=== PATIENT | male | born 1965 | race Caucasian/White ===

== ENCOUNTER 2017-10-16 09:42 | Emergency (ER) | payer MEDICAID ==
[~2017-10-16] VITALS: Ht 170.2 cm; Wt 110.0 kg
[2017-10-16] MEDS ORDERED: LIDOcaine 1% 30ml preserv. free vial IJ ONE (10:50)
[2017-10-16] MEDS ORDERED: TETanus/Pertussis (Acell)/Diphther VAC/PF (Tdap-Adult) 0.5ml syringe IM ONE (10:50)
[2017-10-16] MEDS ORDERED: CEPH500C5 PO (12:38)
[2017-10-16 12:57] VITALS: BP 135/98
== END 2017-10-16 12:58 | disposition home or self-care (01) ==
LOC: ER 09:42
DX: L02.511 Cutaneous abscess of right hand (principal); L03.011 Cellulitis of right finger; M54.2 Cervicalgia
CPT/HCPCS: 26010; 72040; 73140; 90471; 90715; 99284; A6449; J3490; 10060

== ENCOUNTER 2017-10-18 17:12 | Emergency (ER) | payer MEDICAID ==
[~2017-10-18] VITALS: Ht 170.2 cm; Wt 97.3 kg
[~2017-10-18 17:12] MED LIST: CEPH500C5 PO
[2017-10-18 17:17] VITALS: BP 146/99
[2017-10-18] MEDS ORDERED: ipratropium 0.5 MG/2.5ML nebule IH ONE (18:35)
[2017-10-18] MEDS ORDERED: albuterol 2.5 MG/3 ML nebule CONTNEB PRN (18:35)
[2017-10-18] MEDS ORDERED: predniSONE 20 mg tablet PO ONE (18:35)
[2017-10-18] MEDS ORDERED: albuterol 2.5 MG/3 ML nebule NEB ONE (18:50)
[2017-10-18] MEDS ORDERED: PRED20TA PO (19:48)
[2017-10-18] MEDS ORDERED: ALBU8HFA PO (19:48)
[2017-10-18] MEDS ORDERED: DOXY100C2 PO (19:50)
[2017-10-18] MEDS ORDERED: ATRIN INH (19:50)
== END 2017-10-18 20:10 | disposition home or self-care (01) ==
LOC: ER 17:21
DX: J44.1 Chronic obstructive pulmonary disease with (acute) exacerbation (principal); J18.8 Other pneumonia, unspecified organism; F15.10 Other stimulant abuse, uncomplicated; F17.210 Nicotine dependence, cigarettes, uncomplicated; Z86.14 Personal history of Methicillin resistant Staphylococcus aureus infection; Z79.899 Other long term (current) drug therapy
CPT/HCPCS: 71046; 94640; 94760; 99284; J7512

== ENCOUNTER 2018-03-19 15:20 | Inpatient (IN) | payer MEDICAID ==
[~2018-03-19] VITALS: Ht 167.6 cm; Wt 96.4 kg
[2018-03-19 08:00] VITALS: BP 114/76
[~2018-03-19 15:20] MED LIST changes: +ALBU8HFA PO; +ATRIN INH; +PRED20TA PO
[2018-03-19] MEDS ORDERED: normal saline 1000ml 1,000 ML IV ONE (15:31)
[2018-03-19] MEDS ORDERED: aspirin 81mg tab.chew PO ONE (15:35)
[2018-03-19] MEDS ORDERED: nitroGLYCERIN 0.2mg/hour patch TD ONE (15:35)
[2018-03-19] MEDS ORDERED: normal saline 1000ML IV soln IVB ONE (15:35)
[2018-03-19 16:07] LABS: BASOPHILS % (AUTO) 0.4 % (0-1); EOSINOPHILS # (AUTO) 0.1 X10'3 (0-0.9); HEMATOCRIT 46.8 % (42.0-52.0); HEMOGLOBIN 16.1 g/dl (14.0-17.9); LYMPHOCYTES # (AUTO) 2.1 X10'3 (1.1-4.8); LYMPHOCYTES % (AUTO) 32.8 % (21-51); MEAN CORPUSCULAR HEMOGLOBIN 29.3 PG (27.0-31.0); MEAN CORPUSCULAR HGB CONC 34.4 % (33.0-36.5); MEAN CORPUSCULAR VOLUME 85.3 FL (78-98); MEAN PLATELET VOLUME 8.4 FL (7.4-10.4); MONOCYTES # (AUTO) 0.5 X10'3 (0-0.9); NEUTROPHILS # (AUTO) 3.6 X10'3 (1.8-7.7); NEUTROPHILS % (AUTO) 56.8 % (42-75); PLATELET COUNT 230 X10'3 (140-440); RED BLOOD COUNT 5.49 X10'6 (4.70-6.10); RED CELL DISTRIBUTION WIDTH 14.2 % (11.5-14.5); WHITE BLOOD COUNT 6.3 X10'3 (4.5-11.0)
[2018-03-19 16:17] LABS: PARTIAL THROMBOPLASTIN TIME 28 SECONDS (22-32); PROTHROMBIN TIME 10.6 SECONDS (9.0-12.0)
[2018-03-19 16:23] LABS: ALANINE AMINOTRANSFERASE 33 U/L (12-78); ALBUMIN/GLOBULIN RATIO 1.1 (1.1-1.5); ALKALINE PHOSPHATASE 75 IU/L (46-116); ANION GAP 9 (8-16); ASPARTATE AMINO TRANSFERASE 21 U/L (10-37); BILIRUBIN,TOTAL 1.1 MG/DL (0.1-1.0); BLOOD UREA NITROGEN 17 MG/DL (7-18); BUN/CREATININE RATIO 13.7 (5.4-32.0); CALCIUM 8.9 MG/DL (8.5-10.1); CHLORIDE 103 MMOL/L (99-107); CREATININE 1.24 MG/DL (0.60-1.10); GLUCOSE 112 MG/DL (70-104); POTASSIUM 3.7 MMOL/L (3.5-5.1); SODIUM 140 MMOL/L (135-145); TOTAL CARBON DIOXIDE 28.1 MMOL/L (24-32); TOTAL PROTEIN 7.6 G/DL (6.4-8.2); eGFR 61 ML/MIN
[2018-03-19 16:31] LABS: MAGNESIUM 1.9 MG/DL (1.5-2.4)
[2018-03-19 16:49] LABS: CLARITY,URINE CLEAR (Clear); COLOR,URINE YELLOW (Yellow); GLUCOSE, URINE NEGATIVE (Neg); KETONES,URINE NEGATIVE (Neg); LEUKOCYTE ESTERASE ,URINE NEGATIVE (Neg); NITRITES, URINE NEGATIVE (Neg); OCCULT BLOOD,URINE TRACE-INTACT (Neg); PROTEIN,URINE 100 mg/dl (Neg)
[2018-03-19 16:55] LABS: UA COLLECTION TYPE CLN CATCH MIDSTREAM
[2018-03-19 16:58] LABS: BACTERIA,URINE FEW /HPF (Neg); MUCUS STRANDS MANY /LPF (Neg); RBC,URINE 0-2 /HPF (0-2); WBC,URINE 0-4 /HPF (0-4)
[2018-03-19 16:59] LABS: SQUAMOUS EPITHELIAL CELL,UR FEW /LPF (FEW)
[2018-03-19 17:51] LABS: ETHANOL < 0.010 GM/DL (0.0-0.010)
[2018-03-19] MEDS ORDERED: normal saline 1000ml 1,000 ML IV SCH (18:27)
[2018-03-19] MEDS ORDERED: magnesium 1gm/100ml D5W IVPB 100 ML IV PRN (18:30)
[2018-03-19] MEDS ORDERED: magnesium Cl slow-release 64mg tablet PO PRN (18:30)
[2018-03-19] MEDS ORDERED: potassium Cl 40MEQ/NS 500ml 500 ML IV PRN ×2 (18:30)
[2018-03-19] MEDS ORDERED: magnesium 4gm in 100ml NS 100 ML IV PRN (18:30)
[2018-03-19] MEDS ORDERED: HYDROcodone/acetaminophen 5mg/325mg tablet PO PRN (18:30)
[2018-03-19] MEDS ORDERED: HYDROcodone/acetaminophen 10/325mg tab PO PRN (18:30)
[2018-03-19] MEDS ORDERED: mag hydrox/Alum hydrox/simeth 30ml oral suspension PO PRN (18:30)
[2018-03-19] MEDS ORDERED: ondansetron/PF 4mg/2ml inj IV PRN (18:30)
[2018-03-19] MEDS ORDERED: magnesium hydroxide 30ml (MOM) UD suspension PO PRN (18:30)
[2018-03-19] MEDS ORDERED: potassium Cl 20 mEq SR tablet PO PRN ×2 (18:30)
[2018-03-19] MEDS ORDERED: acetaminophen 325mg tablet PO PRN ×2 (18:30)
[2018-03-19] MEDS ORDERED: metoprolol tartrate 1mg/ml inj IV PRN (18:35)
[2018-03-19] MEDS ORDERED: regadenoson 0.4mg/5ml syringe IV PRN (18:35)
[2018-03-19] MEDS ORDERED: CAFFEINE CITRATE 60 MG/3 ML injection vial IV PRN (18:35)
[2018-03-19] MEDS ORDERED: nitroGLYCERIN 0.4mg SUBLingual tab SL PRN (18:35)
[2018-03-19 19:59] LABS: URINE AMPHETAMINE SCREEN POSITIVE (Neg); URINE BARBITUATE SCREEN NEGATIVE (Neg); URINE BENZODIAZEPINES SCREEN NEGATIVE (Neg); URINE CANNABINOID SCREEN NEGATIVE (Neg); URINE COCAINE SCREEN NEGATIVE (Neg); URINE METHADONE SCREEN NEGATIVE (Neg); URINE OPIATE SCREEN NEGATIVE (Neg); URINE PHENCYCLIDINE SCREEN NEGATIVE (Neg)
[2018-03-19] MEDS ORDERED: predniSONE 20 mg tablet PO ONE (20:00)
[2018-03-19] MEDS: heparin, porcine 5000 units/ml vial SQ SCH (20:25)
[2018-03-19] MEDS ORDERED: temazepam 15mg capsule PO PRN (21:00)
[2018-03-19 23:00] VITALS: BP 128/89
[2018-03-20] MEDS ORDERED: predniSONE 20 mg tablet PO ONE ×2 (02:00→08:00)
[2018-03-20 03:44] LABS: BASOPHILS % (AUTO) 0.4 % (0-1); EOSINOPHILS # (AUTO) 0.1 X10'3 (0-0.9); EOSINOPHILS % (AUTO) 1.9 % (0-6); HEMATOCRIT 45.3 % (42.0-52.0); HEMOGLOBIN 15.5 g/dl (14.0-17.9); LYMPHOCYTES # (AUTO) 2.6 X10'3 (1.1-4.8); LYMPHOCYTES % (AUTO) 34.5 % (21-51); MEAN CORPUSCULAR HEMOGLOBIN 29.5 PG (27.0-31.0); MEAN CORPUSCULAR HGB CONC 34.1 % (33.0-36.5); MEAN CORPUSCULAR VOLUME 86.5 FL (78-98); MEAN PLATELET VOLUME 8.1 FL (7.4-10.4); MONOCYTES # (AUTO) 0.6 X10'3 (0-0.9); MONOCYTES % (AUTO) 7.7 % (2-12); NEUTROPHILS # (AUTO) 4.2 X10'3 (1.8-7.7); NEUTROPHILS % (AUTO) 55.5 % (42-75); PLATELET COUNT 228 X10'3 (140-440); RED BLOOD COUNT 5.24 X10'6 (4.70-6.10); RED CELL DISTRIBUTION WIDTH 14.3 % (11.5-14.5); WHITE BLOOD COUNT 7.7 X10'3 (4.5-11.0)
[2018-03-20 03:59] LABS: ALANINE AMINOTRANSFERASE 37 U/L (12-78); ALBUMIN 3.6 G/DL (3.4-5.0); ALKALINE PHOSPHATASE 72 IU/L (46-116); ANION GAP 4 (8-16); ASPARTATE AMINO TRANSFERASE 22 U/L (10-37); BILIRUBIN,TOTAL 0.8 MG/DL (0.1-1.0); BLOOD UREA NITROGEN 18 MG/DL (7-18); BUN/CREATININE RATIO 15.9 (5.4-32.0); CALCIUM 8.7 MG/DL (8.5-10.1); CHLORIDE 104 MMOL/L (99-107); CREATININE 1.13 MG/DL (0.60-1.10); GLUCOSE 95 MG/DL (70-104); POTASSIUM 3.9 MMOL/L (3.5-5.1); SODIUM 139 MMOL/L (135-145); TOTAL CARBON DIOXIDE 31.1 MMOL/L (24-32); TOTAL PROTEIN 7.1 G/DL (6.4-8.2); eGFR 68 ML/MIN
[2018-03-20 04:02] LABS: CHOL/HDL RATIO 4.8 (0.00-4.99); CHOLESTEROL 189 MG/DL (0-200); HDL CHOLESTEROL 39 MG/DL (35-60); LDL CHOLESTEROL 132 MG/DL (50-100); MAGNESIUM 1.9 MG/DL (1.5-2.4); TRIGLYCERIDES 147 MG/DL (20-135)
[2018-03-20 06:00] VITALS: BP 129/88
[2018-03-20] MEDS: lisinopril 5mg tablet PO SCH (07:57)
[2018-03-20] MEDS: heparin, porcine 5000 units/ml vial SQ SCH ×2 (07:57→19:28)
[2018-03-20] MEDS: aspirin 81mg tab.chew PO SCH (07:57)
[2018-03-20] MEDS: K and/or MAG REPLACEMENT MC SCH (08:00)
[2018-03-20] MEDS ORDERED: diphenhydrAMINE 25mg capsule PO ONE (08:00)
[2018-03-20 08:51] LABS: LIPASE 128 U/L (73-393)
[2018-03-20 11:00] VITALS: BP 134/89
[2018-03-20] MEDS ORDERED: LORazepam 2 mg/ml vial IV PRN (13:45)
[2018-03-20] MEDS ORDERED: LORazepam 1 MG tablet PO PRN (13:45)
[2018-03-20 15:00] VITALS: BP 108/83
[2018-03-20] MEDS: pantoprazole 40 MG vial IV SCH (15:07)
[2018-03-20] MEDS: folic acid inj. 2 MG, thiamine inj. 100 MG, MVI, adult No.4 with vit. K 10 ML in dextro... IV SCH ×4 (15:07)
[2018-03-20 19:00] VITALS: BP 129/92
[2018-03-20] MEDS: metoprolol tartrate 12.5mg (1/2 tablet) PO SCH (19:29)
[2018-03-20] MEDS: diatr meglu/diatrizoate 30ml oral sol.-(3 dose) bottle PO SCH (20:16)
[2018-03-20 23:00] VITALS: BP 103/61
[2018-03-21] VITALS (15 sets, daily range): BP systolic 107–136; BP diastolic 68–94
[2018-03-21 05:47] LABS: ALANINE AMINOTRANSFERASE 38 U/L (12-78); ALBUMIN 3.3 G/DL (3.4-5.0); ALBUMIN/GLOBULIN RATIO 0.9 (1.1-1.5); ALKALINE PHOSPHATASE 63 IU/L (46-116); ANION GAP 8 (8-16); ASPARTATE AMINO TRANSFERASE 29 U/L (10-37); BILIRUBIN,TOTAL 0.5 MG/DL (0.1-1.0); BLOOD UREA NITROGEN 12 MG/DL (7-18); BUN/CREATININE RATIO 13.3 (5.4-32.0); CALCIUM 8.8 MG/DL (8.5-10.1); CHLORIDE 106 MMOL/L (99-107); GLUCOSE 99 MG/DL (70-104); MAGNESIUM 1.9 MG/DL (1.5-2.4); SODIUM 141 MMOL/L (135-145); TOTAL PROTEIN 6.9 G/DL (6.4-8.2); eGFR 88 ML/MIN
[2018-03-21] MEDS: folic acid inj. 2 MG, thiamine inj. 100 MG, MVI, adult No.4 with vit. K 10 ML in dextro... IV SCH ×4 (07:31)
[2018-03-21] MEDS: heparin, porcine 5000 units/ml vial SQ SCH (07:31)
[2018-03-21] MEDS: diatr meglu/diatrizoate 30ml oral sol.-(3 dose) bottle PO SCH ×2 (07:31→09:04)
[2018-03-21] MEDS: pantoprazole 40 MG vial IV SCH (07:31)
[2018-03-21] MEDS: aspirin 81mg tab.chew PO SCH (07:32)
[2018-03-21] MEDS: K and/or MAG REPLACEMENT MC SCH (08:00)
[2018-03-21] MEDS ORDERED: iohexol 300mg/ml 100ml inj. ONE (08:46)
[2018-03-21] MEDS ORDERED: CAFFEINE CITRATE 60 MG/3 ML injection vial IV ONE (09:45)
[2018-03-21] MEDS ORDERED: regadenoson 0.4mg/5ml syringe IV ONE (09:45)
[2018-03-21] MEDS: lisinopril 5mg tablet PO SCH (12:33)
[2018-03-21] MEDS: metoprolol tartrate 12.5mg (1/2 tablet) PO SCH (12:33)
[2018-03-21] MEDS ORDERED: NITR0.4T51 SL (14:11)
[2018-03-21] MEDS ORDERED: METR500T4 PO (14:11)
[2018-03-21] MEDS ORDERED: METO25TA6 PO (14:11)
[2018-03-21] MEDS ORDERED: THI100T PO (14:11)
[2018-03-21] MEDS ORDERED: LEVO750T21 PO (14:11)
[2018-03-21] MEDS ORDERED: FOLI1TAB16 PO (14:11)
[2018-03-21] MEDS ORDERED: ASPI81TA52 PO (14:12)
[2018-03-21] MEDS ORDERED: OMEP20TA23 PO (14:15)
[2018-03-21] MEDS ORDERED: ATOR20TA66 PO (14:19)
== END 2018-03-21 14:55 | disposition home or self-care (01) | DRG 137 ==
LOC: ER 15:21 → ED HOLD 18:33 → PCU 3S 19:43
PROVIDERS: ADMIT Internal Medicine; ATTEND Internal Medicine
DX: J69.0 Pneumonitis due to inhalation of food and vomit (principal); I42.6 Alcoholic cardiomyopathy; K57.90 Diverticulosis of intestine, part unspecified, without perforation or abscess without bleeding; E66.9 Obesity, unspecified; E78.5 Hyperlipidemia, unspecified; I25.110 Atherosclerotic heart disease of native coronary artery with unstable angina pectoris; J44.9 Chronic obstructive pulmonary disease, unspecified; J98.11 Atelectasis; K29.20 Alcoholic gastritis without bleeding; F10.20 Alcohol dependence, uncomplicated; F15.10 Other stimulant abuse, uncomplicated; I10 Essential (primary) hypertension; F17.200 Nicotine dependence, unspecified, uncomplicated; Z71.41 Alcohol abuse counseling and surveillance of alcoholic; Z71.6 Tobacco abuse counseling; Z68.34 Body mass index [BMI] 34.0-34.9, adult
CPT/HCPCS: 36415; 71045; 71250; 74177; 78451; 80053; 80061; 80305; 80320; 81001; 82948; 83690; 83735; 83880; 84443; 84484; 85025; 85610; 85730; 87070; 93005; 93017; 93306; A9500; C9113; J1644; J3411; J3490; J7030; J7060; Q9963; Q9967

== ENCOUNTER 2018-08-04 13:52 | Emergency (ER) | payer MEDICAID ==
[~2018-08-04] VITALS: Ht 167.6 cm; Wt 104.5 kg
[~2018-08-04 13:52] MED LIST changes: +ATOR20TA66 PO; -CEPH500C5 PO; +FOLI1TAB16 PO; +METO25TA6 PO; +NITR0.4T51 SL; +OMEP20TA23 PO; -PRED20TA PO
[2018-08-04 14:51] LABS: BASOPHILS % (AUTO) 0.2 % (0-1); EOSINOPHILS # (AUTO) 0.4 X10'3 (0-0.9); EOSINOPHILS % (AUTO) 4.2 % (0-6); HEMOGLOBIN 14.5 g/dl (14.0-17.9); LYMPHOCYTES # (AUTO) 2.3 X10'3 (1.1-4.8); LYMPHOCYTES % (AUTO) 22.9 % (21-51); MEAN CORPUSCULAR HEMOGLOBIN 28.1 PG (27.0-31.0); MEAN CORPUSCULAR HGB CONC 32.3 % (33.0-36.5); MEAN CORPUSCULAR VOLUME 86.9 FL (78-98); MONOCYTES # (AUTO) 0.8 X10'3 (0-0.9); NEUTROPHILS # (AUTO) 6.4 X10'3 (1.8-7.7); NEUTROPHILS % (AUTO) 64.7 % (42-75); PLATELET COUNT 259 X10'3 (140-440); RED BLOOD COUNT 5.18 X10'6 (4.70-6.10); RED CELL DISTRIBUTION WIDTH 14.1 % (11.5-14.5); WHITE BLOOD COUNT 9.9 X10'3 (4.5-11.0)
[2018-08-04] MEDS ORDERED: albuterol 2.5 MG/3 ML nebule NEB ONE (15:00)
[2018-08-04] MEDS ORDERED: furosemide 10 MG/1 ML 10ml inj IV ONE (15:00)
[2018-08-04 15:10] LABS: ALANINE AMINOTRANSFERASE 53 U/L (12-78); ALBUMIN 3.7 G/DL (3.4-5.0); ALBUMIN/GLOBULIN RATIO 1.1 (1.1-1.5); ALKALINE PHOSPHATASE 85 IU/L (46-116); ANION GAP 10 (8-16); ASPARTATE AMINO TRANSFERASE 27 U/L (10-37); BLOOD UREA NITROGEN 8 MG/DL (7-18); BUN/CREATININE RATIO 8.7 (5.4-32.0); CALCIUM 9.3 MG/DL (8.5-10.1); CHLORIDE 101 MMOL/L (99-107); CREATININE 0.92 MG/DL (0.60-1.10); GLUCOSE 89 MG/DL (70-104); SODIUM 142 MMOL/L (135-145); TOTAL CARBON DIOXIDE 30.6 MMOL/L (24-32); TOTAL PROTEIN 7.1 G/DL (6.4-8.2); eGFR 85 ML/MIN
[2018-08-04 15:16] LABS: MAGNESIUM 1.7 MG/DL (1.5-2.4)
[2018-08-04 15:54] LABS: D-DIMER 0.21 MG/L FEU (0-0.50)
[2018-08-04] MEDS ORDERED: SPIR25TA5 PO (16:20)
[2018-08-04] MEDS ORDERED: FURO-149 PO (16:20)
[2018-08-04 17:10] VITALS: BP 143/90
== END 2018-08-04 17:11 | disposition home or self-care (01) ==
LOC: ER 13:53
DX: I50.9 Heart failure, unspecified (principal); F15.90 Other stimulant use, unspecified, uncomplicated; Z86.14 Personal history of Methicillin resistant Staphylococcus aureus infection; Z79.899 Other long term (current) drug therapy
CPT/HCPCS: 36415; 71045; 80053; 83605; 83735; 83880; 84145; 84484; 85025; 85379; 87040; 87502; 87503; 93005; 94640; 94760; 96374; 99284; J1940

== ENCOUNTER 2018-10-12 09:22 | Emergency (ER) | payer MEDICAID ==
[~2018-10-12] VITALS: Ht 170.2 cm; Wt 104.5 kg
[~2018-10-12 09:22] MED LIST changes: +FURO-149 PO; +SPIR25TA5 PO
[2018-10-12] MEDS ORDERED: aspirin 81mg tab.chew PO ONE (10:10)
[2018-10-12 10:11] LABS: BASOPHILS % (AUTO) 0.2 % (0-1); EOSINOPHILS % (AUTO) 0.6 % (0-6); HEMATOCRIT 44.8 % (42.0-52.0); HEMOGLOBIN 15.4 g/dl (14.0-17.9); LYMPHOCYTES # (AUTO) 0.6 X10'3 (1.1-4.8); LYMPHOCYTES % (AUTO) 7.9 % (21-51); MEAN CORPUSCULAR HGB CONC 34.3 g/dL (33.0-36.5); MEAN CORPUSCULAR VOLUME 84.6 FL (78-98); MEAN PLATELET VOLUME 7.9 FL (7.4-10.4); MONOCYTES # (AUTO) 0.7 X10'3 (0-0.9); MONOCYTES % (AUTO) 9.7 % (2-12); NEUTROPHILS # (AUTO) 5.8 X10'3 (1.8-7.7); NEUTROPHILS % (AUTO) 81.6 % (42-75); PLATELET COUNT 218 X10'3 (140-440); RED CELL DISTRIBUTION WIDTH 15.6 % (11.5-14.5); WHITE BLOOD COUNT 7.1 X10'3 (4.5-11.0)
[2018-10-12 10:24] LABS: ALANINE AMINOTRANSFERASE 30 U/L (12-78); ALBUMIN 4.1 G/DL (3.4-5.0); ALKALINE PHOSPHATASE 86 IU/L (46-116); ANION GAP 9 (8-16); ASPARTATE AMINO TRANSFERASE 24 U/L (10-37); BLOOD UREA NITROGEN 15 MG/DL (7-18); BUN/CREATININE RATIO 13.6 (5.4-32.0); CALCIUM 9.1 MG/DL (8.5-10.1); CHLORIDE 96 MMOL/L (99-107); GLUCOSE 94 MG/DL (70-104); SODIUM 134 MMOL/L (135-145); TOTAL CARBON DIOXIDE 28.7 MMOL/L (24-32); TOTAL PROTEIN 8.2 G/DL (6.4-8.2); eGFR 69 ML/MIN
[2018-10-12 10:26] LABS: INR 1.1 INR; PARTIAL THROMBOPLASTIN TIME 32 SECONDS (22-32); PROTHROMBIN TIME 10.9 SECONDS (9.0-12.0)
[2018-10-12] MEDS ORDERED: nitroGLYCERIN 1gm ointment UD TP ONE (10:45)
[2018-10-12 11:29] LABS: D-DIMER 0.24 MG/L FEU (0-0.50)
[2018-10-12] MEDS ORDERED: ketorolac tromethamine 15mg/ml inj. IM ONE (11:30)
[2018-10-12 11:51] LABS: CLARITY,URINE Slightly Cloudy (Clear); COLOR,URINE YELLOW (Yellow); UA COLLECTION TYPE VOIDED; URINE AMPHETAMINE SCREEN POSITIVE (Neg); URINE BARBITUATE SCREEN NEGATIVE (Neg); URINE BENZODIAZEPINES SCREEN NEGATIVE (Neg); URINE CANNABINOID SCREEN NEGATIVE (Neg); URINE COCAINE SCREEN NEGATIVE (Neg); URINE METHADONE SCREEN NEGATIVE (Neg); URINE OPIATE SCREEN NEGATIVE (Neg); URINE PHENCYCLIDINE SCREEN NEGATIVE (Neg)
[2018-10-12 11:52] LABS: GLUCOSE, URINE NEGATIVE (Neg); KETONES,URINE NEGATIVE (Neg); LEUKOCYTE ESTERASE ,URINE NEGATIVE (Neg); NITRITES, URINE NEGATIVE (Neg); OCCULT BLOOD,URINE NEGATIVE (Neg); PROTEIN,URINE 30 mg/dl (Neg)
[2018-10-12] MEDS ORDERED: furosemide 10 MG/1 ML 10ml inj IV ONE (12:00)
[2018-10-12] MEDS ORDERED: furosemide 40mg/4ml inj IV ONE (12:00)
[2018-10-12 12:20] LABS: RBC,URINE NONE SEEN /HPF (0-2)
[2018-10-12 12:21] LABS: BACTERIA,URINE FEW /HPF (Neg); SQUAMOUS EPITHELIAL CELL,UR FEW /LPF (FEW)
[2018-10-12] MEDS ORDERED: FURO40TA4 PO (14:39)
[2018-10-12 14:57] VITALS: BP 123/76
== END 2018-10-12 15:00 | disposition home or self-care (01) ==
LOC: ER 09:23
DX: I11.0 Hypertensive heart disease with heart failure (principal); I50.9 Heart failure, unspecified; E78.00 Pure hypercholesterolemia, unspecified; F15.90 Other stimulant use, unspecified, uncomplicated; R06.82 Tachypnea, not elsewhere classified; F17.200 Nicotine dependence, unspecified, uncomplicated; Z86.14 Personal history of Methicillin resistant Staphylococcus aureus infection; Z79.899 Other long term (current) drug therapy
CPT/HCPCS: 36415; 71045; 80053; 80305; 81001; 83605; 83880; 84484; 85025; 85379; 85610; 85730; 93005; 96372; 96374; 99284; J1885; J1940

== ENCOUNTER 2018-10-16 09:40 | Inpatient (IN) | payer MEDICAID ==
[~2018-10-16] VITALS: Ht 170.2 cm; Wt 93.3 kg
--- NOTE | 2018-10-16 00:30 | NUR ---
pt pulled off tele monitor, o2, and iv. pt moved to another room with a sitter. jessica drawn. pt placed on 6L o2 nc. Addendum: 10/17/18 at 0253 by Sera Hernandes RN the above occured at 10/17/18 @ 0030
[~2018-10-16 09:40] MED LIST changes: +FURO40TA4 PO
[2018-10-16 10:29] LABS: EOSINOPHILS % (AUTO) 0.1 % (0-6); HEMATOCRIT 44.7 % (42.0-52.0); HEMOGLOBIN 15.4 g/dl (14.0-17.9); LYMPHOCYTES # (AUTO) 0.8 X10'3 (1.1-4.8); LYMPHOCYTES % (AUTO) 21.8 % (21-51); MEAN CORPUSCULAR HEMOGLOBIN 28.6 PG (27.0-31.0); MEAN CORPUSCULAR HGB CONC 34.5 g/dL (33.0-36.5); MEAN CORPUSCULAR VOLUME 82.9 FL (78-98); MEAN PLATELET VOLUME 8.3 FL (7.4-10.4); MONOCYTES # (AUTO) 0.2 X10'3 (0-0.9); MONOCYTES % (AUTO) 4.4 % (2-12); NEUTROPHILS # (AUTO) 2.6 X10'3 (1.8-7.7); NEUTROPHILS % (AUTO) 72.7 % (42-75); PLATELET COUNT 154 X10'3 (140-440); RED BLOOD COUNT 5.39 X10'6 (4.70-6.10); RED CELL DISTRIBUTION WIDTH 15.1 % (11.5-14.5); WHITE BLOOD COUNT 3.6 X10'3 (4.5-11.0)
[2018-10-16 10:49] LABS: ALANINE AMINOTRANSFERASE 29 U/L (12-78); ALBUMIN 3.2 G/DL (3.4-5.0); ALBUMIN/GLOBULIN RATIO 0.9 (1.1-1.5); ALKALINE PHOSPHATASE 76 IU/L (46-116); ANION GAP 6 (8-16); ASPARTATE AMINO TRANSFERASE 61 U/L (10-37); BILIRUBIN,TOTAL 0.5 MG/DL (0.1-1.0); BLOOD UREA NITROGEN 21 MG/DL (7-18); BUN/CREATININE RATIO 17.8 (5.4-32.0); CALCIUM 8.2 MG/DL (8.5-10.1); CHLORIDE 93 MMOL/L (99-107); CREATININE 1.18 MG/DL (0.60-1.10); GLUCOSE 91 MG/DL (70-104); POTASSIUM 3.9 MMOL/L (3.5-5.1); SODIUM 128 MMOL/L (135-145); TOTAL PROTEIN 6.9 G/DL (6.4-8.2); eGFR 64 ML/MIN
[2018-10-16 10:55] LABS: PROTHROMBIN TIME 11.4 SECONDS (9.0-12.0)
[2018-10-16 10:56] LABS: INR 1.1 INR; MAGNESIUM 1.7 MG/DL (1.5-2.4); PARTIAL THROMBOPLASTIN TIME 39 SECONDS (22-32)
[2018-10-16] MEDS ORDERED: LORazepam 1 MG tablet PO ONE (11:55)
[2018-10-16] MEDS ORDERED: mag hydrox/Alum hydrox/simeth 30ml oral suspension PO PRN (12:25)
[2018-10-16] MEDS ORDERED: magnesium 2GM in 50ml NS 50 ML IV PRN (12:25)
[2018-10-16] MEDS ORDERED: magnesium hydroxide 30ml (MOM) UD suspension PO PRN (12:25)
[2018-10-16] MEDS ORDERED: magnesium 4gm in 100ml NS 100 ML IV PRN (12:25)
[2018-10-16] MEDS ORDERED: ondansetron/PF 4mg/2ml inj IV PRN (12:25)
[2018-10-16] MEDS ORDERED: potassium Cl 40MEQ/NS 500ml 500 ML IV PRN ×2 (12:25)
[2018-10-16] MEDS ORDERED: acetaminophen 325mg tablet PO PRN ×2 (12:25)
[2018-10-16] MEDS ORDERED: potassium Cl 20 mEq SR tablet PO PRN (12:25)
[2018-10-16] MEDS ORDERED: HYDROcodone/acetaminophen 5mg/325mg tablet PO PRN (12:25)
[2018-10-16] MEDS ORDERED: morphine 4 MG/ML inj SYRINge IV PRN (12:25)
[2018-10-16] MEDS ORDERED: magnesium Cl slow-release 64mg tablet PO PRN (12:25)
[2018-10-16] MEDS ORDERED: iohexol 300mg/ml 100ml inj. ONE (12:42)
--- NOTE | 2018-10-16 12:52 | NUR ---
Doppler at bedside for study as ordered.
--- NOTE | 2018-10-16 13:24 | NUR ---
To CT via WC.
--- NOTE | 2018-10-16 14:45 | NUR ---
Patient in room PCU 3016. I have received report from Rox MACHADO in ED, and had the opportunity to ask questions and assume patient care.
--- NOTE | 2018-10-16 14:50 | NUR ---
Pt arrived on the unit, tucked in, resting comfortably
[2018-10-16 15:00] VITALS: BP 113/82
[2018-10-16] MEDS: albuterol 2.5 MG/3 ML nebule NEB SCH ×4 (16:00→23:57)
--- NOTE | 2018-10-16 18:14 | NUR ---
Problems reprioritized. Patient report given, questions answered & plan of care reviewed with CARTER Bailey from [facility].
[2018-10-16 18:18] VITALS: BP 120/72
[2018-10-16] MEDS: furosemide 40mg/4ml inj IV SCH (19:22)
[2018-10-16] MEDS: metoprolol tartrate 12.5mg (1/2 tablet) PO SCH (19:22)
[2018-10-16] MEDS: hydrOXYzine 25 MG tablet PO PRN (19:22)
--- NOTE | 2018-10-16 19:22 | NUR ---
pt requesting something for anxiety and sleep. ativan discontinued, called and order for atarax obtained.
[2018-10-16] MEDS ORDERED: heparin, porcine 5000 units/ml vial SQ SCH (20:00)
--- NOTE | 2018-10-16 20:00 | NUR ---
pt resting comfortably.
--- NOTE | 2018-10-16 20:30 | NUR ---
pt up to bathroom with scds still on. educated pt about getting out of bed without assistance.
[2018-10-16] MEDS ORDERED: temazepam 15mg capsule PO PRN (21:00)
--- NOTE | 2018-10-16 21:00 | NUR ---
pt pulled tele and nasal cannula off.
[2018-10-17] VITALS (21 sets, daily range): BP systolic 88–129; BP diastolic 57–87
--- NOTE | 2018-10-17 00:30 | NUR ---
pt pulled off tele monitor, o2, and iv. pt moved to another room with a sitter. abg drawn. pt placed on 6L o2 nc.
[2018-10-17 00:41] LABS: ABG BASE EXCESS 2.3 mmol/L (-2.0-3.0); ABG HCO3 23.3 mmol/L (22.0-26.0); ABG OXYGEN SATURATION 88.7 % (95-98); ABG PCO2 (T) 27.6 mmHg (35.0-48.0); ABG PH (T) 7.545 (7.350-7.450); ABG PO2 (T) 54.2 mmHg (83-108); FCOHb 0.8 % (0.5-1.5); FLOW 6 L/min; FMetHb 0.1 % (0.3-1.12); FO2Hb 87.9 % (94-100); PATIENT TEMPERATURE 37.2; TOTAL HEMOGLOBIN 15.8 G/dl (14.0-18.0)
--- NOTE | 2018-10-17 01:30 | NUR ---
02 increased to 10l to obtain sp02 of 91%. md called about change in o2 needs and mentation change. new orders given.
--- NOTE | 2018-10-17 01:45 | NUR ---
rapid response called by charge nurse.
[2018-10-17 02:16] LABS: ABG BASE EXCESS 2.1 mmol/L (-2.0-3.0); ABG HCO3 24.7 mmol/L (22.0-26.0); ABG OXYGEN SATURATION 96.3 % (95-98); ABG PCO2 (T) 35.8 mmHg (35.0-48.0); ABG PH (T) 7.463 (7.350-7.450); ABG PO2 (T) 99.8 mmHg (83-108); ALLEN'S TEST Positive; FCOHb 0.6 % (0.5-1.5); FLOW 15 L/min; FMetHb 0.1 % (0.3-1.12); FO2Hb 95.6 % (94-100); TOTAL HEMOGLOBIN 15.8 G/dl (14.0-18.0)
[2018-10-17] MEDS ORDERED: furosemide 40mg/4ml inj IV ONE (02:25)
--- NOTE | 2018-10-17 02:30 | NUR ---
Patient in room PCU 3012 B. I have received report from CARTER Bailey and had the opportunity to ask questions and assume patient care. Patient to be transferred to room 2038 from a rapid response.
[2018-10-17] MEDS ORDERED: NORepinephrine 8mg/ 250ml NS 250 ML IV ONE (02:35)
--- NOTE | 2018-10-17 02:40 | NUR ---
Patient arrived to room via hospital bed with ICU charge gang weigher, RT, and 2 RN's from PCU in attendance. Patient on portable monitor. Patient is alert and oriented x4. Patient appears anxious. Patient with increased respiratory rate of 38-[address] Patient speaking in 1-2 word sentences. Patient placed on ECG monitor showing normal sinus rhythm. Vital signs assessed. blood glucose assessed. BiPap placed 100% fiO2. Lara catheter placed. Secondary IV established on second attempt to right forearm with 20 ga IV. Levophed gtt to keep MAP greater than 65 and Lasix administered patient with crackles bilateral lung sounds. Patient skin is mottled from hips down. UA sent to lab. Sunil Yanez NP at bedside. Physical Assessment complete. Patient reminded to keep mask on his face. Will continue to monitor.
[2018-10-17] MEDS: NORepinephrine 8mg/ 250ml NS 250 ML IV SCH (03:03)
[2018-10-17] MEDS: albuterol 2.5 MG/3 ML nebule NEB SCH ×6 (03:24→23:20)
[2018-10-17 03:59] LABS: URINE AMPHETAMINE SCREEN NEGATIVE (Neg); URINE BARBITUATE SCREEN NEGATIVE (Neg); URINE BENZODIAZEPINES SCREEN NEGATIVE (Neg); URINE CANNABINOID SCREEN NEGATIVE (Neg); URINE COCAINE SCREEN NEGATIVE (Neg); URINE METHADONE SCREEN NEGATIVE (Neg); URINE OPIATE SCREEN NEGATIVE (Neg); URINE PHENCYCLIDINE SCREEN NEGATIVE (Neg)
[2018-10-17] MEDS ORDERED: LIDOcaine 2% 10ml TOPICAL JELLY (Urojet) MM ONE (04:25)
[2018-10-17] MEDS: levoFLOXACIN-Levaquin 750MG/D5 150 ML IV SCH (04:54)
--- NOTE | 2018-10-17 05:30 | NUR ---
Call made for admitting to come and place wallet in safe.
--- NOTE | 2018-10-17 05:35 | NUR ---
Urine output post Lasix:250mL. Lara cather changed, due to leaking urine around catheter, bladder scanned pt. Scanner shows,105mL. Pt diaphoretic, febrile, tylenol given earlier for fever but appearing less agitated than earlier,tolerating BiPap. Will continue to monitor. Naima updated, no new orders received.
--- NOTE | 2018-10-17 06:30 | NUR ---
Problems reprioritized. Patient report given, questions answered & plan of care reviewed with CARTER Barraza.
[2018-10-17 06:33] LABS: BASOPHILS % (AUTO) 0.1 % (0-1); EOSINOPHILS % (AUTO) 0 % (0-6); HEMATOCRIT 43.8 % (42.0-52.0); HEMOGLOBIN 15.2 g/dl (14.0-17.9); LYMPHOCYTES # (AUTO) 0.8 X10'3 (1.1-4.8); LYMPHOCYTES % (AUTO) 16.2 % (21-51); MEAN CORPUSCULAR HEMOGLOBIN 28.3 PG (27.0-31.0); MEAN CORPUSCULAR HGB CONC 34.6 g/dL (33.0-36.5); MEAN CORPUSCULAR VOLUME 81.8 FL (78-98); MONOCYTES # (AUTO) 0.3 X10'3 (0-0.9); MONOCYTES % (AUTO) 6.3 % (2-12); NEUTROPHILS # (AUTO) 3.9 X10'3 (1.8-7.7); NEUTROPHILS % (AUTO) 77.4 % (42-75); PLATELET COUNT 151 X10'3 (140-440); RED BLOOD COUNT 5.36 X10'6 (4.70-6.10); RED CELL DISTRIBUTION WIDTH 15.4 % (11.5-14.5)
--- NOTE | 2018-10-17 06:41 | NUR ---
[place] documentation: I have reviewed and agree with all interventions, assessments performed and documented by Alba MACHADO. [place] Medication Administration: For this medication-pass time frame, all medication were reviewed, dispensed, administered and documented per hospital policy by Alba MACHADO.
[2018-10-17 06:43] LABS: ALANINE AMINOTRANSFERASE 30 U/L (12-78); ALBUMIN 3.1 G/DL (3.4-5.0); ALBUMIN/GLOBULIN RATIO 0.8 (1.1-1.5); ALKALINE PHOSPHATASE 73 IU/L (46-116); ANION GAP 12 (8-16); ASPARTATE AMINO TRANSFERASE 68 U/L (10-37); BILIRUBIN,TOTAL 0.7 MG/DL (0.1-1.0); BLOOD UREA NITROGEN 24 MG/DL (7-18); BUN/CREATININE RATIO 16.4 (5.4-32.0); CALCIUM 7.7 MG/DL (8.5-10.1); CHLORIDE 87 MMOL/L (99-107); CHOL/HDL RATIO 2.3 (0.00-4.99); CHOLESTEROL 66 MG/DL (0-200); CREATININE 1.46 MG/DL (0.60-1.10); GLUCOSE 102 MG/DL (70-104); HDL CHOLESTEROL 29 MG/DL (35-60); LDL CHOLESTEROL 34 MG/DL (50-100); MAGNESIUM 1.4 MG/DL (1.5-2.4); POTASSIUM 3.3 MMOL/L (3.5-5.1); SODIUM 125 MMOL/L (135-145); TOTAL CARBON DIOXIDE 26.2 MMOL/L (24-32); TOTAL PROTEIN 6.8 G/DL (6.4-8.2); TRIGLYCERIDES 76 MG/DL (20-135); eGFR 50 ML/MIN
--- NOTE | 2018-10-17 06:45 | NUR ---
Late entry: Pt's wallet sent to safe, see admitting intake sheet for details. Remainder of pt's belongings including pt's cell phone, in belongings bag in [employer] cart,
[2018-10-17] MEDS: pantoprazole 40 MG vial IV SCH (07:14)
[2018-10-17] MEDS: furosemide 40mg/4ml inj IV SCH ×2 (07:14→20:57)
[2018-10-17 07:45] LABS: PHOSPHORUS 4.7 MG/DL (2.3-4.5)
[2018-10-17] MEDS: lisinopril 5mg tablet PO SCH (08:00)
[2018-10-17] MEDS: metoprolol tartrate 12.5mg (1/2 tablet) PO SCH ×2 (08:00→20:55)
[2018-10-17] MEDS: K and/or MAG REPLACEMENT MC SCH (08:00)
[2018-10-17] MEDS: atorvastatin 20mg tablet PO SCH (08:00)
--- NOTE | 2018-10-17 18:30 | NUR ---
Patient in room ICU 2038. I have received report from Christi RN and Saulo RN and had the opportunity to ask questions and assume patient care with preceptor CARTER Ledezma.
--- NOTE | 2018-10-17 19:50 | NUR ---
Naima notified of pt's Na, orders received to temporarily change patient's diet to regular. Recheck chemistries in the am.
[2018-10-17] MEDS: lactobacillus rhamnosus 10,000 MMU CELLS/CAPSULE PO SCH (20:54)
[2018-10-18] VITALS (23 sets, daily range): BP systolic 80–124; BP diastolic 43–86
[2018-10-18] MEDS: albuterol 2.5 MG/3 ML nebule NEB SCH ×2 (03:32→07:54)
[2018-10-18] MEDS: levoFLOXACIN-Levaquin 750MG/D5 150 ML IV SCH (04:08)
[2018-10-18 05:27] LABS: BASOPHILS % (AUTO) 0.3 % (0-1); EOSINOPHILS % (AUTO) 0 % (0-6); HEMATOCRIT 45.6 % (42.0-52.0); HEMOGLOBIN 15.3 g/dl (14.0-17.9); LYMPHOCYTES # (AUTO) 1.2 X10'3 (1.1-4.8); LYMPHOCYTES % (AUTO) 25.8 % (21-51); MEAN CORPUSCULAR HEMOGLOBIN 27.7 PG (27.0-31.0); MEAN CORPUSCULAR HGB CONC 33.6 g/dL (33.0-36.5); MEAN CORPUSCULAR VOLUME 82.4 FL (78-98); MEAN PLATELET VOLUME 8.9 FL (7.4-10.4); MONOCYTES # (AUTO) 0.3 X10'3 (0-0.9); MONOCYTES % (AUTO) 6.9 % (2-12); NEUTROPHILS # (AUTO) 3.2 X10'3 (1.8-7.7); PLATELET COUNT 147 X10'3 (140-440); RED BLOOD COUNT 5.53 X10'6 (4.70-6.10); RED CELL DISTRIBUTION WIDTH 15.2 % (11.5-14.5); WHITE BLOOD COUNT 4.8 X10'3 (4.5-11.0)
[2018-10-18 05:29] LABS: ANION GAP 4 (8-16); BILIRUBIN,TOTAL 0.5 MG/DL (0.1-1.0); BLOOD UREA NITROGEN 22 MG/DL (7-18); BUN/CREATININE RATIO 20.6 (5.4-32.0); CALCIUM 7.5 MG/DL (8.5-10.1); CHLORIDE 92 MMOL/L (99-107); CREATININE 1.07 MG/DL (0.60-1.10); GLUCOSE 96 MG/DL (70-104); POTASSIUM 3.4 MMOL/L (3.5-5.1); SODIUM 127 MMOL/L (135-145); TOTAL CARBON DIOXIDE 31.1 MMOL/L (24-32); eGFR 72 ML/MIN
[2018-10-18 05:30] LABS: ALANINE AMINOTRANSFERASE 29 U/L (12-78); ALBUMIN 2.7 G/DL (3.4-5.0); ALBUMIN/GLOBULIN RATIO 0.7 (1.1-1.5); ALKALINE PHOSPHATASE 71 IU/L (46-116); ASPARTATE AMINO TRANSFERASE 73 U/L (10-37); TOTAL PROTEIN 6.5 G/DL (6.4-8.2)
[2018-10-18] MEDS: potassium Cl 20 mEq SR tablet PO PRN ×3 (05:38→23:52)
--- NOTE | 2018-10-18 06:20 | NUR ---
Problems reprioritized. Patient report given, questions answered & plan of care reviewed with CARTER Barraza and CARTER Vernon.
[2018-10-18] MEDS: lactobacillus rhamnosus 10,000 MMU CELLS/CAPSULE PO SCH ×2 (07:25→19:51)
[2018-10-18] MEDS: atorvastatin 20mg tablet PO SCH (07:25)
[2018-10-18] MEDS: pantoprazole 40 MG vial IV SCH (07:25)
[2018-10-18] MEDS: furosemide 40mg/4ml inj IV SCH ×2 (07:25→19:51)
[2018-10-18] MEDS: K and/or MAG REPLACEMENT MC SCH (08:00)
[2018-10-18] MEDS: lisinopril 5mg tablet PO SCH ×2 (08:00→21:00)
[2018-10-18] MEDS: metoprolol tartrate 12.5mg (1/2 tablet) PO SCH (08:00)
[2018-10-18] MEDS ORDERED: aspirin 81mg tablet.DR PO ONE (08:50)
[2018-10-18] MEDS ORDERED: albuterol 2.5 MG/3 ML nebule NEB PRN (10:45)
[2018-10-18] MEDS: carVEDilol 3.125mg tablet PO SCH ×2 (11:29→19:51)
[2018-10-18 11:54] LABS: ABG BASE EXCESS 3.7 mmol/L (-2.0-3.0); ABG HCO3 27.3 mmol/L (22.0-26.0); ABG PCO2 (T) 38.9 mmHg (35.0-48.0); ABG PH (T) 7.465 (7.350-7.450); ABG PO2 (T) 69.3 mmHg (83-108); FCOHb 0.6 % (0.5-1.5); FMetHb 0.2 % (0.3-1.12); FO2Hb 92.3 % (94-100); MINUTE VOLUME 14 L/min; PATIENT TEMPERATURE 37.5; RESPIRATORY RATE 16 b/min; RESPIRATORY RATE (OBSERVED) 27 b/min; TIDAL VOLUME 469 mL; TOTAL HEMOGLOBIN 16.4 G/dl (14.0-18.0)
[2018-10-18] MEDS ORDERED: DOBUTamine-DoBUTrex 500mg/D5W 250 ML IV SCH (16:30)
--- NOTE | 2018-10-18 18:28 | NUR ---
Patient in room ICU 2038. I have received report from CARTER Vernon, and had the opportunity to ask questions and assume patient care. Pt sitting upright in chair eating dinner, requesting milk to drink.
[2018-10-19] VITALS (24 sets, daily range): BP systolic 84–131; BP diastolic 35–95
[2018-10-19] MEDS: NORepinephrine 8mg/ 250ml NS 250 ML IV SCH (01:08)
[2018-10-19] MEDS: levoFLOXACIN-Levaquin 750MG/D5 150 ML IV SCH (03:35)
[2018-10-19 05:51] LABS: BASOPHILS % (AUTO) 0.2 % (0-1); EOSINOPHILS % (AUTO) 0.2 % (0-6); HEMATOCRIT 42.7 % (42.0-52.0); HEMOGLOBIN 14.6 g/dl (14.0-17.9); LYMPHOCYTES # (AUTO) 1.3 X10'3 (1.1-4.8); MEAN CORPUSCULAR HEMOGLOBIN 28.3 PG (27.0-31.0); MEAN CORPUSCULAR HGB CONC 34.2 g/dL (33.0-36.5); MEAN CORPUSCULAR VOLUME 82.6 FL (78-98); MEAN PLATELET VOLUME 8.9 FL (7.4-10.4); MONOCYTES # (AUTO) 0.5 X10'3 (0-0.9); MONOCYTES % (AUTO) 9.4 % (2-12); NEUTROPHILS # (AUTO) 3.1 X10'3 (1.8-7.7); NEUTROPHILS % (AUTO) 64.2 % (42-75); PLATELET COUNT 165 X10'3 (140-440); RED BLOOD COUNT 5.18 X10'6 (4.70-6.10); RED CELL DISTRIBUTION WIDTH 15.3 % (11.5-14.5); WHITE BLOOD COUNT 4.9 X10'3 (4.5-11.0)
[2018-10-19 05:59] LABS: ALANINE AMINOTRANSFERASE 30 U/L (12-78); ALBUMIN 2.6 G/DL (3.4-5.0); ALBUMIN/GLOBULIN RATIO 0.7 (1.1-1.5); ALKALINE PHOSPHATASE 71 IU/L (46-116); ANION GAP 2 (8-16); ASPARTATE AMINO TRANSFERASE 63 U/L (10-37); BILIRUBIN,TOTAL 0.6 MG/DL (0.1-1.0); BLOOD UREA NITROGEN 20 MG/DL (7-18); BUN/CREATININE RATIO 19.8 (5.4-32.0); CHLORIDE 98 MMOL/L (99-107); CREATININE 1.01 MG/DL (0.60-1.10); GLUCOSE 105 MG/DL (70-104); MAGNESIUM 1.7 MG/DL (1.5-2.4); POTASSIUM 4.5 MMOL/L (3.5-5.1); SODIUM 136 MMOL/L (135-145); TOTAL CARBON DIOXIDE 36.3 MMOL/L (24-32); TOTAL PROTEIN 6.3 G/DL (6.4-8.2); eGFR 77 ML/MIN
--- NOTE | 2018-10-19 06:23 | NUR ---
Problems reprioritized. Patient report given, questions answered & plan of care reviewed with CARTER Vernon.
[2018-10-19] MEDS: lactobacillus rhamnosus 10,000 MMU CELLS/CAPSULE PO SCH ×2 (07:27→20:26)
[2018-10-19] MEDS: aspirin 81mg tablet.DR PO SCH (07:27)
[2018-10-19] MEDS: pantoprazole 40 MG vial IV SCH (07:27)
[2018-10-19] MEDS: atorvastatin 20mg tablet PO SCH (07:27)
[2018-10-19] MEDS: carVEDilol 3.125mg tablet PO SCH (07:27)
[2018-10-19] MEDS: furosemide 40mg/4ml inj IV SCH (07:27)
[2018-10-19 07:37] LABS: PHOSPHORUS 2.3 MG/DL (2.3-4.5)
[2018-10-19] MEDS: K and/or MAG REPLACEMENT MC SCH (08:00)
--- NOTE | 2018-10-19 09:04 | NUR ---
Bradycardia and hypotension Patient was being assisted to side of the bed to eat breakfast when patient went unresponsive and HR went down to 46. We quickly placed patient back into bed I stayed with the patient while Corrie notified Dr. Resendiz who was on the unit and came into the room. Blood sugar check was performed (99) and after around 30 secs patient began to respond appropriately for self. patient blood pressure was 81/50.
--- NOTE | 2018-10-19 16:18 | NUR ---
Wallet Registration brought patient wallet up to patient and patient sighed for wallet and gave it to his .
--- NOTE | 2018-10-19 17:00 | NUR ---
Pt stood at the side of the bed this am x2 standby assist; pt marched in place- no bradycardia or hypotension. Pt put back to bed.
--- NOTE | 2018-10-19 18:30 | NUR ---
Patient in room ICU 2038. I have received report from CARTER Vernon, and had the opportunity to ask questions and assume patient care.
--- NOTE | 2018-10-19 18:46 | NUR ---
Dr. Lopez arrived in unit to round on pt.
[2018-10-19] MEDS ORDERED: furosemide 40 MG/4 ML oral solution UD cup PO SCH (20:00)
[2018-10-19] MEDS: heparin, porcine 5000 units/ml vial SQ SCH (20:25)
[2018-10-19] MEDS: lisinopril 5mg tablet PO SCH (20:26)
[2018-10-20] VITALS (19 sets, daily range): BP systolic 82–119; BP diastolic 52–85
[2018-10-20] MEDS: levoFLOXACIN-Levaquin 750MG/D5 150 ML IV SCH (02:52)
[2018-10-20 04:18] LABS: BASOPHILS % (AUTO) 0.5 % (0-1); EOSINOPHILS % (AUTO) 0.4 % (0-6); HEMATOCRIT 43.8 % (42.0-52.0); HEMOGLOBIN 14.8 g/dl (14.0-17.9); LYMPHOCYTES # (AUTO) 1.5 X10'3 (1.1-4.8); LYMPHOCYTES % (AUTO) 32.6 % (21-51); MEAN CORPUSCULAR HEMOGLOBIN 28.2 PG (27.0-31.0); MEAN CORPUSCULAR HGB CONC 33.8 g/dL (33.0-36.5); MEAN CORPUSCULAR VOLUME 83.5 FL (78-98); MEAN PLATELET VOLUME 8.8 FL (7.4-10.4); MONOCYTES # (AUTO) 0.5 X10'3 (0-0.9); MONOCYTES % (AUTO) 10.8 % (2-12); NEUTROPHILS # (AUTO) 2.6 X10'3 (1.8-7.7); NEUTROPHILS % (AUTO) 55.7 % (42-75); PLATELET COUNT 212 X10'3 (140-440); RED BLOOD COUNT 5.24 X10'6 (4.70-6.10); RED CELL DISTRIBUTION WIDTH 15.1 % (11.5-14.5); WHITE BLOOD COUNT 4.6 X10'3 (4.5-11.0)
[2018-10-20 04:28] LABS: ALANINE AMINOTRANSFERASE 30 U/L (12-78); ALBUMIN 2.5 G/DL (3.4-5.0); ALBUMIN/GLOBULIN RATIO 0.7 (1.1-1.5); ALKALINE PHOSPHATASE 75 IU/L (46-116); ANION GAP 4 (8-16); ASPARTATE AMINO TRANSFERASE 53 U/L (10-37); BILIRUBIN,TOTAL 0.5 MG/DL (0.1-1.0); BLOOD UREA NITROGEN 15 MG/DL (7-18); BUN/CREATININE RATIO 15.8 (5.4-32.0); CALCIUM 8.3 MG/DL (8.5-10.1); CHLORIDE 99 MMOL/L (99-107); CREATININE 0.95 MG/DL (0.60-1.10); GLUCOSE 142 MG/DL (70-104); MAGNESIUM 1.6 MG/DL (1.5-2.4); POTASSIUM 3.6 MMOL/L (3.5-5.1); SODIUM 138 MMOL/L (135-145); TOTAL CARBON DIOXIDE 34.8 MMOL/L (24-32); TOTAL PROTEIN 6.3 G/DL (6.4-8.2); eGFR 82 ML/MIN
--- NOTE | 2018-10-20 06:22 | NUR ---
Problems reprioritized. Patient report given, questions answered & plan of care reviewed with CARTER Denton.
--- NOTE | 2018-10-20 06:30 | NUR ---
Assumed care of pt this am after receiving report from shift commander CARTER Bailon.
[2018-10-20] MEDS: K and/or MAG REPLACEMENT MC SCH (08:00)
[2018-10-20] MEDS ORDERED: furosemide 40mg tablet PO SCH (08:33)
[2018-10-20] MEDS ORDERED: potassium Cl 20 mEq SR tablet PO PRN (08:40)
[2018-10-20] MEDS ORDERED: potassium Cl 40MEQ/NS 500ml 500 ML IV PRN ×2 (08:40)
[2018-10-20] MEDS ORDERED: magnesium 4gm in 100ml NS 100 ML IV PRN (08:55)
[2018-10-20] MEDS: aspirin 81mg tablet.DR PO SCH (09:18)
[2018-10-20] MEDS: pantoprazole 40mg Tablet.DR PO SCH (09:18)
[2018-10-20] MEDS: heparin, porcine 5000 units/ml vial SQ SCH ×2 (09:18→20:00)
[2018-10-20] MEDS: lactobacillus rhamnosus 10,000 MMU CELLS/CAPSULE PO SCH ×2 (09:18→20:41)
[2018-10-20] MEDS: atorvastatin 20mg tablet PO SCH (09:19)
[2018-10-20] MEDS: furosemide 40mg tablet PO SCH ×2 (09:20→20:41)
[2018-10-20] MEDS ORDERED: sodium phosphate inj. 15 MMOL in dextrose 5%-water 150 ML IV PRN (09:55)
[2018-10-20] MEDS ORDERED: Neutra Phos packet PO PRN (09:55)
[2018-10-20] MEDS ORDERED: sodium phosphate inj. 30 MMOL in dextrose 5%-water 250 ML IV PRN (09:55)
--- NOTE | 2018-10-20 10:27 | NUR ---
Pt voided via urinal post diaz cath removal.
[2018-10-20] MEDS: carVEDilol 3.125mg tablet PO SCH ×2 (10:41→20:41)
[2018-10-20] MEDS: potassium Cl 20 mEq SR tablet PO PRN (10:41)
[2018-10-20] MEDS: magnesium Cl slow-release 64mg tablet PO PRN (11:50)
[2018-10-20] MEDS: levoFLOXACIN 250mg tablet PO SCH (11:50)
--- NOTE | 2018-10-20 15:30 | NUR ---
Report given to MARY Barboza RN; pt stable upon tx. Tele box being applied now; pt and family updated.
--- NOTE | 2018-10-20 18:31 | NUR ---
Problems reprioritized. Patient report given, questions answered & plan of care reviewed with CARTER Lund.
--- NOTE | 2018-10-20 18:35 | NUR ---
Patient in room U 3013. I have received report from Tam MACHADO and had the opportunity to ask questions and assume patient care. Patient sitting at edge of bed eating dinner tray. In no acute distress. Will continue to monitor.
[2018-10-20] MEDS: lisinopril 5mg tablet PO SCH (20:40)
[2018-10-21] VITALS (7 sets, daily range): BP systolic 100–122; BP diastolic 62–80
--- NOTE | 2018-10-21 00:20 | NUR ---
Patient in room PCU 3013. I have received report from Ashely MACHADO and had the opportunity to ask questions and assume patient care.
--- NOTE | 2018-10-21 00:27 | NUR ---
Problems reprioritized. Patient report given, questions answered & plan of care reviewed with Tanner MACHADO.
[2018-10-21 06:02] LABS: BASOPHILS % (AUTO) 0.2 % (0-1); EOSINOPHILS % (AUTO) 0.8 % (0-6); HEMATOCRIT 42.6 % (42.0-52.0); HEMOGLOBIN 14.7 g/dl (14.0-17.9); LYMPHOCYTES # (AUTO) 1.4 X10'3 (1.1-4.8); LYMPHOCYTES % (AUTO) 25.1 % (21-51); MEAN CORPUSCULAR HEMOGLOBIN 28.4 PG (27.0-31.0); MEAN CORPUSCULAR HGB CONC 34.5 g/dL (33.0-36.5); MEAN CORPUSCULAR VOLUME 82.3 FL (78-98); MEAN PLATELET VOLUME 8.4 FL (7.4-10.4); MONOCYTES # (AUTO) 0.7 X10'3 (0-0.9); MONOCYTES % (AUTO) 11.5 % (2-12); NEUTROPHILS # (AUTO) 3.6 X10'3 (1.8-7.7); NEUTROPHILS % (AUTO) 62.4 % (42-75); PLATELET COUNT 268 X10'3 (140-440); RED BLOOD COUNT 5.17 X10'6 (4.70-6.10); RED CELL DISTRIBUTION WIDTH 15.2 % (11.5-14.5); WHITE BLOOD COUNT 5.8 X10'3 (4.5-11.0)
[2018-10-21 06:23] LABS: ALANINE AMINOTRANSFERASE 32 U/L (12-78); ALBUMIN 2.7 G/DL (3.4-5.0); ALBUMIN/GLOBULIN RATIO 0.7 (1.1-1.5); ALKALINE PHOSPHATASE 73 IU/L (46-116); ANION GAP 6 (8-16); ASPARTATE AMINO TRANSFERASE 45 U/L (10-37); BILIRUBIN,TOTAL 0.7 MG/DL (0.1-1.0); BLOOD UREA NITROGEN 14 MG/DL (7-18); BUN/CREATININE RATIO 14.3 (5.4-32.0); CALCIUM 8.2 MG/DL (8.5-10.1); CHLORIDE 101 MMOL/L (99-107); CREATININE 0.98 MG/DL (0.60-1.10); GLUCOSE 134 MG/DL (70-104); MAGNESIUM 1.5 MG/DL (1.5-2.4); POTASSIUM 3.9 MMOL/L (3.5-5.1); SODIUM 137 MMOL/L (135-145); TOTAL CARBON DIOXIDE 30.3 MMOL/L (24-32); TOTAL PROTEIN 6.6 G/DL (6.4-8.2); eGFR 79 ML/MIN
[2018-10-21] MEDS: pantoprazole 40mg Tablet.DR PO SCH (07:39)
[2018-10-21] MEDS: potassium Cl 20 mEq SR tablet PO PRN ×3 (07:39→20:56)
[2018-10-21] MEDS: carVEDilol 3.125mg tablet PO SCH ×2 (07:40→20:03)
[2018-10-21] MEDS: aspirin 81mg tablet.DR PO SCH (07:40)
[2018-10-21] MEDS: atorvastatin 20mg tablet PO SCH (07:40)
[2018-10-21] MEDS: lactobacillus rhamnosus 10,000 MMU CELLS/CAPSULE PO SCH ×2 (07:40→20:03)
[2018-10-21] MEDS: magnesium Cl slow-release 64mg tablet PO PRN ×3 (07:41→20:56)
[2018-10-21] MEDS: furosemide 40mg tablet PO SCH ×2 (07:41→20:03)
[2018-10-21] MEDS: K and/or MAG REPLACEMENT MC SCH (08:00)
[2018-10-21] MEDS: heparin, porcine 5000 units/ml vial SQ SCH ×2 (08:00→20:00)
[2018-10-21] MEDS: levoFLOXACIN 250mg tablet PO SCH (11:37)
--- NOTE | 2018-10-21 18:15 | NUR ---
Problems reprioritized. Patient report given, questions answered & plan of care reviewed with Montse MACHADO.
--- NOTE | 2018-10-21 18:22 | NUR ---
Student Medication Administration: For this medication-pass time frame, all medication were reviewed, dispensed, administered and documented per hospital policy by Marely CURTIS.
--- NOTE | 2018-10-21 18:22 | NUR ---
Student documentation: I have reviewed and agree with all interventions, assessments performed and documented by Marely CURTIS.
--- NOTE | 2018-10-21 18:30 | NUR ---
Patient in room PCU 3013. I have received report from CARTER Hart and had the opportunity to ask questions and assume patient care.
[2018-10-21] MEDS: lisinopril 5mg tablet PO SCH (20:56)
[2018-10-22] MEDS: potassium Cl 20 mEq SR tablet PO PRN (00:54)
[2018-10-22] MEDS: hydrOXYzine 25 MG tablet PO PRN (00:55)
[2018-10-22 01:50] VITALS: BP 109/67
[2018-10-22 06:04] LABS: MAGNESIUM 1.8 MG/DL (1.5-2.4); POTASSIUM 4.1 MMOL/L (3.5-5.1)
--- NOTE | 2018-10-22 06:20 | NUR ---
Patient in room PCU 3013. I have received report from Montse MACHADO and had the opportunity to ask questions and assume patient care. Patient awke sitting on edge of bed wanting to go home today. Bed low locked call light in reach
--- NOTE | 2018-10-22 06:47 | NUR ---
Problems reprioritized. Patient report given, questions answered & plan of care reviewed with CARTER Vee.
[2018-10-22 07:30] VITALS: BP 120/90
[2018-10-22] MEDS: K and/or MAG REPLACEMENT MC SCH (08:00)
[2018-10-22] MEDS: heparin, porcine 5000 units/ml vial SQ SCH (08:00)
[2018-10-22] MEDS: lactobacillus rhamnosus 10,000 MMU CELLS/CAPSULE PO SCH (08:19)
[2018-10-22] MEDS: carVEDilol 3.125mg tablet PO SCH (08:19)
[2018-10-22] MEDS: furosemide 40mg tablet PO SCH (08:19)
[2018-10-22] MEDS: atorvastatin 20mg tablet PO SCH (08:20)
[2018-10-22] MEDS: magnesium Cl slow-release 64mg tablet PO PRN (08:20)
[2018-10-22] MEDS: aspirin 81mg tablet.DR PO SCH (08:20)
[2018-10-22] MEDS: pantoprazole 40mg Tablet.DR PO SCH (08:20)
--- NOTE | 2018-10-22 10:15 | NUR ---
O2 Sat at rest on room air:_86__% If below 89%: Recovery O2 Sat at rest on __2_LPM:__93_%:___% via_Nasal Cannula (mask/nasal cannula, etc..) No further documentation is necessary. If O2 Sat did not drop below 89% on room air,ambulate patient on room air. O2 Sat while ambulating on room air:___% Recovery O2 Sat while ambulating on ___LPM:___% No further documentation is necessary. If patient does not drop below 89% while ambulating, he/she does not qualify for home O2.
[2018-10-22 11:30] VITALS: BP 110/73
[2018-10-22] MEDS: levoFLOXACIN 250mg tablet PO SCH (11:34)
--- NOTE | 2018-10-22 12:53 | NUR ---
SS met w/pt & family, reviewed referrals for additional support: [facility]-PMD, Intensive Outpatient Care Coordination, [facility] and [facility]. Written instructions and how to contact these providers were provided to pt, pt's scheduled to d/c today. No additional need for SS at this time, SS referral closed. Addendum: 10/22/18 at 1255 by Felipa Landers SS Amended: Links added.
[2018-10-22] MEDS ORDERED: LISI-642 PO (12:59)
[2018-10-22] MEDS ORDERED: LEVO250T58 PO (12:59)
[2018-10-22] MEDS ORDERED: COR3.125T PO (12:59)
[2018-10-22] MEDS ORDERED: FURO40TA4 PO (12:59)
[2018-10-22] MEDS ORDERED: POTA20TA19 PO (12:59)
[2018-10-22] MEDS ORDERED: ASPI-1071 PO (12:59)
[2018-10-22] MEDS ORDERED: ALBU8HFA PO (13:06)
--- NOTE | 2018-10-22 14:45 | NUR ---
Patient discharged home. All belongings sent. 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 All IV's removed. Patient educated on heart failure, follow up apt and new medications. PATIENT WAS EDUCATED NOT TO DRINK ALCOHOL AND TO COME TO ER IF SYMPTOMS WORSEN. HOME OXYGEN WAS SENT HOME WITH PATIENT
== END 2018-10-22 14:50 | disposition home or self-care (01) | DRG 133 ==
LOC: ER 09:41 → ED HOLD 12:22 → EDBEDREQ 14:15 → PCU 3S 14:54 → ICU 2S 10-17 02:36 → PCU 3S 10-20 15:35
PROVIDERS: ADMIT Internal Medicine; ATTEND Family Medicine
PROC: 5A09357 Assistance with Respiratory Ventilation, Less than 24 Consecutive Hours, Continuous Positive Airway Pressure (ICD-10-PCS; principal; 2018-10-17)
PROC: 5A12012 Performance of Cardiac Output, Single, Manual (ICD-10-PCS; 2018-10-19)
DX: J96.00 Acute respiratory failure, unspecified whether with hypoxia or hypercapnia (principal); I50.23 Acute on chronic systolic (congestive) heart failure; I95.9 Hypotension, unspecified; I42.6 Alcoholic cardiomyopathy; I42.7 Cardiomyopathy due to drug and external agent; E87.1 Hypo-osmolality and hyponatremia; I11.0 Hypertensive heart disease with heart failure; J44.9 Chronic obstructive pulmonary disease, unspecified; T43.625A Adverse effect of amphetamines, initial encounter; E78.00 Pure hypercholesterolemia, unspecified; E78.5 Hyperlipidemia, unspecified; Z60.2 Problems related to living alone; F17.210 Nicotine dependence, cigarettes, uncomplicated; F15.10 Other stimulant abuse, uncomplicated; I25.10 Atherosclerotic heart disease of native coronary artery without angina pectoris; K29.20 Alcoholic gastritis without bleeding; N28.9 Disorder of kidney and ureter, unspecified; K92.1 Melena; R00.1 Bradycardia, unspecified; R74.8 Abnormal levels of other serum enzymes; Z86.14 Personal history of Methicillin resistant Staphylococcus aureus infection; Z79.899 Other long term (current) drug therapy; Z71.6 Tobacco abuse counseling; Z71.51 Drug abuse counseling and surveillance of drug abuser; Y92.89 Other specified places as the place of occurrence of the external cause
CPT/HCPCS: 36415; 36600; 71045; 71250; 80053; 80061; 80305; 82803; 82948; 83605; 83735; 83880; 84100; 84132; 84484; 85018; 85025; 85610; 85730; 87040; 87070; 93005; 93306; 94640; 94660; 94760; 97110; 97116; 97162; 97530; 99285; C9113; G0378; J1644; J1940; J1956; J2270; J3475; J3480; Q0177; Q9967

== ENCOUNTER 2019-06-01 11:22 | Emergency (ER) | payer MEDICAID ==
[~2019-06-01] VITALS: Ht 170.2 cm; Wt 96.8 kg
[~2019-06-01 11:22] MED LIST changes: -ALBU8HFA PO; +ASPI-1071 PO; -ATOR20TA66 PO; -ATRIN INH; +COR3.125T PO; -FOLI1TAB16 PO; -FURO-149 PO; +LEVO250T58 PO; +LISI-642 PO; -METO25TA6 PO; -NITR0.4T51 SL; -OMEP20TA23 PO; -SPIR25TA5 PO
[2019-06-01 12:04] LABS: BASOPHILS % (AUTO) 0.3 % (0-1); EOSINOPHILS # (AUTO) 0.1 X10'3 (0-0.9); EOSINOPHILS % (AUTO) 0.5 % (0-6); HEMATOCRIT 45.4 % (42.0-52.0); HEMOGLOBIN 15.6 g/dl (14.0-17.9); LYMPHOCYTES # (AUTO) 0.4 X10'3 (1.1-4.8); MEAN CORPUSCULAR HEMOGLOBIN 29.4 PG (27.0-31.0); MEAN CORPUSCULAR HGB CONC 34.3 g/dL (33.0-36.5); MEAN CORPUSCULAR VOLUME 85.8 FL (78-98); MEAN PLATELET VOLUME 7.5 FL (7.4-10.4); MONOCYTES # (AUTO) 0.2 X10'3 (0-0.9); MONOCYTES % (AUTO) 1.9 % (2-12); NEUTROPHILS # (AUTO) 10.3 X10'3 (1.8-7.7); NEUTROPHILS % (AUTO) 93.3 % (42-75); PLATELET COUNT 248 X10'3 (140-440); RED BLOOD COUNT 5.29 X10'6 (4.70-6.10); RED CELL DISTRIBUTION WIDTH 14.7 % (11.5-14.5); WHITE BLOOD COUNT 11.1 X10'3 (4.5-11.0)
[2019-06-01] MEDS ORDERED: ipratropium/albuterol 3ml nebule NEB ONE (12:10)
[2019-06-01 12:14] LABS: PARTIAL THROMBOPLASTIN TIME 30 SECONDS (22-32)
[2019-06-01 12:29] LABS: ALANINE AMINOTRANSFERASE 32 U/L (12-78); ALBUMIN 3.8 G/DL (3.4-5.0); ALBUMIN/GLOBULIN RATIO 0.9 (1.1-1.5); ALKALINE PHOSPHATASE 101 IU/L (46-116); ANION GAP 8 (8-16); ASPARTATE AMINO TRANSFERASE 23 U/L (10-37); BILIRUBIN,TOTAL 1.5 MG/DL (0.1-1.0); BLOOD UREA NITROGEN 8 MG/DL (7-18); BUN/CREATININE RATIO 8.2 (5.4-32.0); CALCIUM 8.6 MG/DL (8.5-10.1); CHLORIDE 103 MMOL/L (99-107); CREATININE 0.97 MG/DL (0.60-1.10); GLUCOSE 142 MG/DL (70-104); POTASSIUM 4.3 MMOL/L (3.5-5.1); SODIUM 138 MMOL/L (135-145); TOTAL CARBON DIOXIDE 27.4 MMOL/L (24-32); TOTAL PROTEIN 8.1 G/DL (6.4-8.2); eGFR 80 ML/MIN
[2019-06-01] MEDS ORDERED: NO HOME MEDS (12:39)
[2019-06-01] MEDS ORDERED: normal saline 1000ML IV soln IVB ONE (13:25)
[2019-06-01] MEDS ORDERED: azithromycin 250mg tablet PO ONE (14:50)
[2019-06-01] MEDS ORDERED: AZIT250T PO (15:48)
[2019-06-01] MEDS ORDERED: ALBU8.5H8 IH (15:48)
[2019-06-01 16:27] VITALS: BP 157/93
== END 2019-06-01 16:34 | disposition home or self-care (01) ==
LOC: ER 11:23
DX: J18.9 Pneumonia, unspecified organism (principal); I11.0 Hypertensive heart disease with heart failure; I50.9 Heart failure, unspecified; E78.00 Pure hypercholesterolemia, unspecified; F10.99 Alcohol use, unspecified with unspecified alcohol-induced disorder; F15.90 Other stimulant use, unspecified, uncomplicated; Z86.14 Personal history of Methicillin resistant Staphylococcus aureus infection; Z60.2 Problems related to living alone; Z79.899 Other long term (current) drug therapy; Y90.9 Presence of alcohol in blood, level not specified
CPT/HCPCS: 36415; 71045; 76700; 80053; 83880; 84484; 85025; 85610; 85730; 93005; 94640; 99284; J7030

== ENCOUNTER 2023-06-30 08:38 | Outpatient (CLI) | payer MEDICAID ==
[~2023-06-30 08:38] MED LIST changes: +ALBU8.5H17 IH; -ASPI-1071 PO; +AZIT250T PO; -COR3.125T PO; -FURO40TA4 PO; -LEVO250T58 PO; -LISI-642 PO; +NO HOME MEDS
== END 2023-06-30 23:59 | disposition home or self-care (01) ==
LOC: VAS 08:38
PROVIDERS: ATTEND Family Medicine
DX: M79.89 Other specified soft tissue disorders (principal)
CPT/HCPCS: 93971